=== PATIENT | female | born 1965 | race American Indian/Alaskan Native ===

== ENCOUNTER 2016-11-03 18:35 | Emergency (ER) | payer BC, OTHER ==
[2016-11-03] MEDS ORDERED: Sodium Chloride 0.9% 10 ML Syringe FLUSH PRN (18:57)
[2016-11-03] MEDS ORDERED: Sodium Chloride 0.9% 2.5 ML Syringe FLUSH PRN (18:57)
--- NOTE | 2016-11-03 19:01 | EDM.PDOC ---
ED HPI GENERAL MEDICAL PROBLEM - General Chief Complaint: Abdominal Pain Stated Complaint: PT HAS STOMACH PAINS Time Seen by Provider: 11/03/16 18:59 Source of Information: Reports: Patient History Limitations: Reports: No Limitations - History of Present Illness INITIAL COMMENTS - FREE TEXT/NARRATIVE: HISTORY AND PHYSICAL: [] 51-year-old female presenting with right lower quadrant pain 3 days History of Present Illness: []Denies any nausea or vomiting, has been having stools Has history of hysterectomy Review of Systems: As per history of present illness and below otherwise all systems reviewed and negative. Past medical history: As per history of present illness and as reviewed below otherwise noncontributory. Surgical history: As per history of present illness and as reviewed below otherwise noncontributory. Social history: No reported history of drug or alcohol abuse. Family history: As per history of present illness and as reviewed below otherwise noncontributory. Physical exam: Alert and oriented female who doesn't look distressed HEENT: Atraumatic, normocehpalic, pupils reactive, negative for conjunctival pallor or scleral icterus, mucous membranes moist, throat clear, neck supple, nontender, trachea midline. Lungs: Clear to auscultation, breath sounds equal bilaterally, chest non tender. Heart: S1S2, regular, negative for clicks, rubs, or JVD. Abdomen: Soft, nondistended, tender no rebound present no guarding. Negative for masses or hepatossplenmegaly. Negative for costovertebral tenderness. Pelvis: Stable nontender. Genitourinary: Deferred. Rectal: Deferred Extremities: Atraumatic, negative for cords or calf pain. Neurovascular unremarkable. Neuro: Awake, alert, oriented. Cranial nerves II through XII unremarkable. Cerebellum unremarkable. Motor and sensory unremarkable throughout. Exam nonfocal. Offer pain medication was declined by the patient Discussed results of the testing with patient no gross abnormality there is some diverticulosis Patient has agreed to pain medication Diagnostics: [CBC, CMP, amylase, lipase, abdominal -pelvic CT with contrast] Therapeutics: [NS] Toradol IV Impression: [Abdominal pain] Plan: [] Home Follow up with your primary care provider Keflex Definitive disposition and diagnosis as appropriate pending reevaluation and review of above. Onset: Sudden Duration: Day(s): (3) Location: Reports: Abdomen Right Lower Abdomen Pain Score (Numeric/FACES): 7 - Related Data Allergies Allergy/AdvReac Type Severity Reaction Status Date / Time fluoxetine HCl [From Prozac] Allergy Hives Verified 08/13/15 22:49 latex Allergy Itching Verified 08/13/15 22:49 strawberry Allergy Rash Verified 08/13/15 22:49 temazepam [From Restoril] Allergy Hives Verified 08/13/15 22:49 halibut Allergy Other Uncoded 11/03/16 19:01 Lobster/Crab Allergy Hives Uncoded 08/13/15 22:49 Home Meds: Home Meds Lisinopril 10 mg PO BRK 11/06/13 [History] sitaGLIPtin Phos/Metformin HCl [Janumet 50-1,000 MG] 1 tab PO BID 11/06/13 [ History] Albuterol Sulfate [Proair Hfa] 2 puff INH ASDIRECTED PRN 04/21/15 [History] Multivitamin [Multivitamins] 1 tab PO DAILY 05/13/15 [History] Aspirin 81 mg PO DAILY 11/03/16 [History] Omeprazole 20 mg PO ONETIME 11/03/16 [History] Past Medical History HEENT History: Reports: Cataract Other HEENT History: wears glasses Cardiovascular History: Reports: None Respiratory History: Reports: Asthma Other Respiratory History: 20 yr history of smoking cigarettes, current 1 pack/ day Gastrointestinal History: Reports: GERD Other Gastrointestinal History: Years of Heartburn GERD "used to take Prilosec, but stopped taking it" Musculoskeletal History: Reports: Fracture Other Musculoskeletal History: hx: fracturing ANkle Neurological History: Reports: None Psychiatric History: Reports: None Other Psychiatric History: "Past, history depression" Endocrine/Metabolic History: Reports: Diabetes, Type II, Obesity/BMI 30+ Hematologic History: Reports: None Immunologic History: Reports: None Oncologic (Cancer) History: Reports: None Dermatologic History: Reports: None - Infectious Disease History Infectious Disease History: Reports: Chicken Pox - Past Surgical History Other GI Surgeries/Procedures: "Reports 3 Hernia repairs with Mesh", Open Cholecystectomy Other Female Surgeries/Procedures: x 2, "total Hysterectomy" Social & Family History - Family History HEENT: Reports: None Cardiac: Reports: None - Tobacco Use Smoking Status *Q: Current Every Day Smoker Years of Tobacco use: 20 Packs/Tins Daily: 1 - Alcohol Use Days Per Week of Alcohol Use: 0 Number of Drinks Per Day: 0 Total Drinks Per Week: 0 - Recreational Drug Use Recreational Drug Use: No Drug Use in Last 12 Months: No ED ROS GENERAL - Review of Systems Review Of Systems: ROS reveals no pertinent complaints other than HPI. ED EXAM, GI/ABD - Physical Exam Exam: See Below (see dictation) Course - Vital Signs Last Recorded V/S: Last Vital Signs Temp 36.1 C 11/03/16 19:07 Pulse 71 11/03/16 21:00 Resp 16 11/03/16 21:00 BP 124/69 11/03/16 21:00 Pulse Ox 97 11/03/16 21:00 - Orders/Labs/Meds Orders: Active Orders 24 hr Category Date Time Status Abdomen Pelvis w Cont [CT] Stat Exams 11/03/16 19:46 Ordered Sodium Chloride 0.9% [Saline Flush] Med 11/03/16 18:57 Active 10 ml FLUSH ASDIRECTED PRN Sodium Chloride 0.9% [Saline Flush] Med 11/03/16 18:57 Active 2.5 ml FLUSH ASDIRECTED PRN Saline Lock Insert [OM.PC] Stat Oth 11/03/16 18:57 Ordered Medication Orders Sodium Chloride (Saline Flush) 10 ml FLUSH ASDIRECTED PRN PRN Reason: Keep Vein Open Last Admin: 11/03/16 19:11 Dose: 10 ml Sodium Chloride (Saline Flush) 2.5 ml FLUSH ASDIRECTED PRN PRN Reason: Keep Vein Open Last Admin: 11/03/16 19:10 Dose: 2.5 ml Labs: Laboratory Tests 11/03/16 11/03/16 11/03/16 Range/Units 19:05 19:05 19:15 WBC 12.73 H (4.0-11.0) K/uL RBC 5.12 (4.30-5.90) M/uL Hgb 15.1 (12.0-16.0) g/dL Hct 43.7 (36.0-46.0) % MCV 85.4 (80.0-98.0) fL MCH 29.5 (27.0-32.0) pg MCHC 34.6 (31.0-37.0) g/dL RDW Std Deviation 42.3 (28.0-62.0) fl RDW Coeff of Yao 14 (11.0-15.0) % Plt Count 212 (150-400) K/uL MPV 12.20 H (7.40-12.00) fL Neut % (Auto) 65.1 (48.0-80.0) % Lymph % (Auto) 27.3 (16.0-40.0) % [place] % (Auto) 3.8 (0.0-15.0) % Eos % (Auto) 3.5 (0.0-7.0) % Baso % (Auto) 0.3 (0.0-1.5) % Neut # (Auto) 8.3 H (1.4-5.7) K/uL Lymph # (Auto) 3.5 H (0.6-2.4) K/uL [place] # (Auto) 0.5 (0.0-0.8) K/uL Eos # (Auto) 0.4 (0.0-0.7) K/uL Baso # (Auto) 0.0 (0.0-0.1) K/uL Nucleated RBC % 0.0 /100WBC Nucleated RBCs # 0 K/uL Sodium 140 (136-146) mmol/L Potassium 4.1 (3.5-5.1) mmol/L Chloride 109 (98-110) mmol/L Carbon Dioxide 20 L (21-31) mmol/L BUN 12 (6.0-23.0) mg/dL Creatinine 0.8 (0.6-1.5) mg/dL Est Cr Clr Drug Dosing 81.81 mL/min Estimated GFR (MDRD) > 60.0 ml/min Glucose 184 H (60-110) mg/dL Calcium 9.4 (8.8-10.8) mg/dL Total Bilirubin 0.4 (0.1-1.5) mg/dL AST 22 (5-40) IU/L ALT 22 (8-54) IU/L Alkaline Phosphatase 84 (40-150) Total Protein 7.7 (6.0-8.0) g/dL Albumin 4.2 (3.5-5.0) g/dL Globulin 3.5 (2.0-3.5) g/dL Albumin/Globulin Ratio 1.2 L (1.3-2.8) Amylase 65 (10-90) U/L Lipase 51 (7-80) U/L Urine Color Urine Appearance Urine pH (5.0-8.0) Ur Specific [place] (1.001-1.035) Urine Protein (NEGATIVE) mg/dL Urine Glucose (UA) (NEGATIVE) mg/dL Urine Ketones (NEGATIVE) mg/dL Urine Occult Blood (NEGATIVE) Urine Nitrite (NEGATIVE) Urine Bilirubin (NEGATIVE) Urine Urobilinogen (<2.0) EU/dL Ur Leukocyte Esterase (NEGATIVE) Urine RBC (0-2/HPF) Urine WBC (0-5/HPF) Ur Epithelial Cells (NONE-FEW) Urine Bacteria (NEGATIVE) Urine Mucus (NONE-MOD) Urine HCG, Qual NEGATIVE (NEGATIVE) 11/03/16 Range/Units 19:15 WBC (4.0-11.0) K/uL RBC (4.30-5.90) M/uL Hgb (12.0-16.0) g/dL Hct (36.0-46.0) % MCV (80.0-98.0) fL MCH (27.0-32.0) pg MCHC (31.0-37.0) g/dL RDW Std Deviation (28.0-62.0) fl RDW Coeff of [place]ao (11.0-15.0) % Plt Count (150-400) K/uL MPV (7.40-12.00) fL Neut % (Auto) (48.0-80.0) % Lymph % (Auto) (16.0-40.0) % [place] % (Auto) (0.0-15.0) % Eos % (Auto) (0.0-7.0) % Baso % (Auto) (0.0-1.5) % Neut # (Auto) (1.4-5.7) K/uL Lymph # (Auto) (0.6-2.4) K/uL [place] # (Auto) (0.0-0.8) K/uL Eos # (Auto) (0.0-0.7) K/uL Baso # (Auto) (0.0-0.1) K/uL Nucleated RBC % /100WBC Nucleated RBCs # K/uL Sodium (136-146) mmol/L Potassium (3.5-5.1) mmol/L Chloride (98-110) mmol/L Carbon Dioxide (21-31) mmol/L BUN (6.0-23.0) mg/dL Creatinine (0.6-1.5) mg/dL Est Cr Clr Drug Dosing mL/min Estimated GFR (MDRD) ml/min Glucose (60-110) mg/dL Calcium (8.8-10.8) mg/dL Total Bilirubin (0.1-1.5) mg/dL AST (5-40) IU/L ALT (8-54) IU/L Alkaline Phosphatase (40-150) Total Protein (6.0-8.0) g/dL Albumin (3.5-5.0) g/dL Globulin (2.0-3.5) g/dL Albumin/Globulin Ratio (1.3-2.8) Amylase (10-90) U/L Lipase (7-80) U/L Urine Color YELLOW Urine Appearance CLEAR Urine pH 6.0 (5.0-8.0) Ur Specific [place] 1.025 (1.001-1.035) Urine Protein NEGATIVE (NEGATIVE) mg/dL Urine Glucose (UA) NEGATIVE (NEGATIVE) mg/dL Urine Ketones NEGATIVE (NEGATIVE) mg/dL Urine Occult Blood TRACE-LYSED (NEGATIVE) Urine Nitrite NEGATIVE (NEGATIVE) Urine Bilirubin NEGATIVE (NEGATIVE) Urine Urobilinogen 0.2 (<2.0) EU/dL Ur Leukocyte Esterase NEGATIVE (NEGATIVE) Urine RBC 0-1 (0-2/HPF) Urine WBC 0-2 (0-5/HPF) Ur Epithelial Cells OCCASIONAL (NONE-FEW) Urine Bacteria FEW (NEGATIVE) Urine Mucus LIGHT (NONE-MOD) Urine HCG, Qual (NEGATIVE) Meds: Medications Generic Name Dose Route Start Last Admin Trade Name Freq PRN Reason Stop Dose Admin Sodium Chloride 10 ml 11/03/16 18:57 11/03/16 19:11 Saline Flush FLUSH 10 ml ASDIRECTED PRN Administration Keep Vein Open Sodium Chloride 2.5 ml 11/03/16 18:57 11/03/16 19:10 Saline Flush FLUSH 2.5 ml ASDIRECTED PRN Administration Keep Vein Open Discontinued Medications Generic Name Dose Route Start Last Admin Trade Name Freq PRN Reason Stop Dose Admin Sodium Chloride 1,000 mls @ 999 mls/hr 11/03/16 19:11 11/03/16 19:16 Normal Saline IV 11/03/16 20:11 999 mls/hr STAT ONE Administration Departure - Departure Time of Disposition: 21:24 Disposition: Home, Self-Care 01 Condition: Good Clinical Impression: Abdominal pain Qualifiers: Abdominal location: right lower quadrant Qualified Code(s): R10.31 - Right lower quadrant pain Diverticulosis Qualifiers: Diverticulosis site: unspecified location Diverticulosis bleeding: diverticulosis without bleeding Qualified Code(s): K57.90 - Diverticulosis of intestine, part unspecified, without perforation or abscess without bleeding - Discharge Information Forms: ED Department Discharge Additional Instructions: The following information is given to patients seen in the emergency department who are being discharged to home. This information is to outline your options for follow-up care. We provide all patients seen in our emergency department with a follow-up referral. The need for follow-up, as well as the timing and circumstances, are variable depending upon the specifics of your emergency department visit. If you don't have a primary care physician on staff, we will provide you with a referral. We always advise you to contact your personal physician following an emergency department visit to inform them of the circumstance of the visit and for follow-up with them and/or the need for any referrals to a consulting specialist. The emergency department will also refer you to a specialist when appropriate. This referral assures that you have the opportunity for followup care with a specialist. All of these measure are taken in an effort to provide you with optimal care, which includes your followup. Under all circumstances we always encourage you to contact your private physician who remains a resource for coordinating your care. When calling for followup care, please make the office aware that this follow-up is from your recent emergency room visit. If for any reason you are refused follow-up, please contact the [facility] emergency department at and asked to speak to the emergency department charge nurse. SHe had a abdominal CT scan while you were here showing some diverticulosis count for your abdominal pain Toradol was given IV Keflex 500 4 times a day 7 days - My Orders Last 24 Hours: My Active Orders 11/03/16 18:57 Sodium Chloride 0.9% [Saline Flush] 10 ml FLUSH ASDIRECTED PRN Sodium Chloride 0.9% [Saline Flush] 2.5 ml FLUSH ASDIRECTED PRN Saline Lock Insert [OM.PC] Stat 11/03/16 19:46 Abdomen Pelvis w Cont [CT] Stat - Assessment/Plan Last 24 Hours: My Active Orders 11/03/16 18:57 Sodium Chloride 0.9% [Saline Flush] 10 ml FLUSH ASDIRECTED PRN Sodium Chloride 0.9% [Saline Flush] 2.5 ml FLUSH ASDIRECTED PRN Saline Lock Insert [OM.PC] Stat 11/03/16 19:46 Abdomen Pelvis w Cont [CT] Stat
[2016-11-03] MEDS ORDERED: Sodium Chloride 0.9% 1,000 ML IV ONE (19:11)
[2016-11-03 19:34] LABS: CHLORIDE,CL 109 mmol/L (98-110); SODIUM,NA 140 mmol/L (136-146)
[2016-11-03] MEDS ORDERED: Iopamidol 755 Mg/ML 100 ML Bottle IVPUSH STA (19:55)
[2016-11-03] MEDS ORDERED: Ketorolac 30 MG/ML SDV IVPUSH ONE (21:24)
[2016-11-03 21:40] VITALS: BP 120/67
--- NOTE | 2016-11-06 13:51 | CT ---
EXAM DATE: 11/03/16 PATIENT'S AGE: 51 Patient: LOGAN MENCHACA Facility: [place], [place] Site . Site : [id number] Study: CT Abdomen/Pelvis [id number]/30/2017 8:26:12 PM Ordering Physician: Doctor Schofield Final Report: INDICATION: Right lower quadrant pain TECHNIQUE: CT abdomen and pelvis acquired with IV contrast. COMPARISON: 03/31/2013. FINDINGS: Lower chest: Unremarkable. Liver: Hepatomegaly measuring 22 centimeters craniocaudally. Mild hepatic steatosis. Nodularity of the inferior hepatic surface. Spleen: Mild splenomegaly measuring 13.7 centimeters craniocaudally. Pancreas: Unremarkable. Gallbladder and bile ducts: Cholecystectomy. Adrenal glands: Unremarkable. Kidneys: No hydronephrosis. Subcentimeter renal low-density lesions, statistically representing cysts. GI tract: No bowel obstruction. Fluid filled lower abdominal and pelvic small bowel segments are nonspecific. A normal-caliber appendix. Colonic diverticulosis without diverticulitis. Vascular structures: Unremarkable. Lymph nodes: Multiple mildly prominent, borderline and shotty subcentimeter upper abdominal, retroperitoneal and mesenteric lymph nodes again seen. Miscellaneous: No free fluid or free air. Interval repair of the previously seen ventral hernia with a mesh along the anterior abdominal wall. Pelvic Organs: Hysterectomy. No gross bladder abnormality seen. Bones: Bilateral L5 spondylolysis with grade 1 anterolisthesis of L5 on S1. IMPRESSION: No evidence of appendicitis, diverticulitis or bowel obstruction. Fluid-filled small bowel segments are nonspecific. Correlate for enteritis. Splenomegaly. Mild hepatic steatosis. Nodularity of the inferior hepatic surface. Correlate for chronic hepatic disease/ cirrhosis. Multiple shotty abdominal lymph nodes again seen. Interval repair of the previously seen ventral hernia. Dictated by Carlos Bolanos MD @ 11/03/2016 9:12:03 PM Dictated by: Carlos Bolanos MD @ 11/03/2016 21:12:09 (Electronic Signature) Report Signed by Proxy. [facility] SYSTEMJavi
== END 2016-11-03 21:37 | disposition home or self-care (01) ==
LOC: MW.ED 18:35
DX: K57.90 Diverticulosis of intestine, part unspecified, without perforation or abscess without bleeding (principal); F17.210 Nicotine dependence, cigarettes, uncomplicated; J45.909 Unspecified asthma, uncomplicated; K21.9 Gastro-esophageal reflux disease without esophagitis; E11.9 Type 2 diabetes mellitus without complications; F32.9 Major depressive disorder, single episode, unspecified; Z79.82 Long term (current) use of aspirin; Z79.899 Other long term (current) drug therapy; Z88.8 Allergy status to other drugs, medicaments and biological substances; Z91.030 Bee allergy status; Z91.040 Latex allergy status
CPT/HCPCS: 74177; 80053; 81001; 81025; 82150; 83690; 85025; 96361; 96374; 99284; J1885; J7040; Q9967

== ENCOUNTER 2018-08-13 05:29 | Emergency (ER) | payer BC, OTHER ==
[2018-08-13] MEDS ORDERED: Albuterol/Ipratropium 3.0-0.5 MG/3 ML Neb Soln ONE (05:30)
[2018-08-13] MEDS ORDERED: Albuterol/Ipratropium 3.0-0.5 MG/3 ML Neb Soln NEB ONE ×2 (05:32→06:14)
[2018-08-13] MEDS ORDERED: Sodium Chloride 0.9% 1,000 ML IV ONE (05:40)
[2018-08-13] MEDS ORDERED: Sodium Chloride 0.9% 10 ML Syringe FLUSH PRN (05:40)
[2018-08-13] MEDS ORDERED: methylPREDNISolone Sodium Succinate 125 MG/2 ML SDV IVPUSH ONE (05:40)
[2018-08-13] MEDS ORDERED: Sodium Chloride 0.9% 2.5 ML Syringe FLUSH PRN (05:40)
--- NOTE | 2018-08-13 05:45 | EDM.PDOC ---
ED HPI GENERAL MEDICAL PROBLEM - General Chief Complaint: Respiratory Problem Stated Complaint: SHORTNESS OF BREATH Time Seen by Provider: 08/13/18 05:32 - History of Present Illness INITIAL COMMENTS - FREE TEXT/NARRATIVE: HISTORY AND PHYSICAL: History of present illness: The patient is a 52-year-old female with a history of asthma who only uses inhalers as needed and has not been on steroids recently but continues to smoke cigarettes and follows with Dr. Lew at [facility] and presents with 2 days of cough congestion and upper respiratory symptoms associated with wheezing which seemed to get worse over the last 2 hours. She says she has had fevers at home and she has been taking [id number] Tylenol and ibuprofen. She has not seen her provider for these symptoms. Patient has had no nausea vomiting or abdominal pain. She denies any chest pain except with the cough and the cough is occasionally productive of some phlegm. Review of systems: As per history of present illness and below otherwise all systems reviewed and negative. Past medical history: As per history of present illness and as reviewed below otherwise noncontributory. Surgical history: As per history of present illness and as reviewed below otherwise noncontributory. Social history: No reported history of drug or alcohol abuse. Family history: As per history of present illness and as reviewed below otherwise noncontributory. Physical exam: General: Well-developed well-nourished mildly overweight female who is nontoxic and can speak without breathlessness. She does have a dry hacking cough on my evaluation. Vital signs are noted by me including the O2 sat on room air at arrival of 93% HEENT: Atraumatic, normocephalic, pupils reactive, negative for conjunctival pallor or scleral icterus, mucous membranes moist, throat clear, neck supple, nontender, trachea midline. Lungs: Scattered expiratory wheezing more on the right and more diminished breath sounds at the left base but no worker breathing or stridor chest nontender. Heart: S1S2, regular rate and rhythm no overt murmurs Abdomen: Soft, nondistended, nontender. NABS Pelvis: Stable nontender. Genitourinary: Deferred. Rectal: Deferred. Extremities: Atraumatic, negative for cords or calf pain. Neurovascular unremarkable. No pedal edema Neuro: Awake, alert, oriented. Cranial nerves II through XII unremarkable. Cerebellum unremarkable. Motor and sensory unremarkable throughout. Exam nonfocal. Diagnostics: CBC lactic acid influenza chest x-ray Therapeutics: IV O2 pulse ox IV fluids duo neb Solu-Medrol spacer After the first DuoNeb patient is moving air much better and is having only scattered wheezing. Her O2 sat on room air is 92-93% but she is not working to breathe. She is aware of testing results including the positive influenza test. I will give her Tamiflu prednisone and Phenergan with codeine for home and she says she has her albuterol inhaler so we will give her a spacer Impression: Acute asthma exacerbation, influenza A Definitive disposition and diagnosis as appropriate pending reevaluation and review of above. 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 Treatments - Related Data Allergies Allergy/AdvReac Type Severity Reaction Status Date / Time fluoxetine HCl [From Prozac] Allergy Hives Verified 08/13/18 05:38 latex Allergy Itching Verified 08/13/18 05:38 strawberry Allergy Rash Verified 08/13/18 05:38 temazepam [From Restoril] Allergy Hives Verified 08/13/18 05:38 halibut Allergy Other Uncoded 08/13/18 05:38 Lobster/Crab Allergy Hives Uncoded 08/13/18 05:38 Home Meds: Home Meds Lisinopril 10 mg PO BRK 11/06/13 [History] sitaGLIPtin Phos/Metformin HCl [Janumet 50-1,000 MG] 1 tab PO BID 11/06/13 [ History] Albuterol Sulfate [Proair Hfa] 2 puff INH ASDIRECTED PRN 04/21/15 [History] Multivitamin [Multivitamins] 1 tab PO DAILY 05/13/15 [History] Aspirin 81 mg PO DAILY 11/03/16 [History] Omeprazole 20 mg PO ONETIME 11/03/16 [History] Orphenadrine [Norflex] 100 mg PO BID PRN #12 tab 04/27/18 [Rx] traMADol [Ultram] 50 mg PO Q6H PRN #12 tab 04/27/18 [Rx] Past Medical History HEENT History: Reports: Cataract Other HEENT History: wears glasses Cardiovascular History: Reports: None Respiratory History: Reports: Asthma Other Respiratory History: 20 yr history of smoking cigarettes, current 1 pack/ day Gastrointestinal History: Reports: GERD Other Gastrointestinal History: Years of Heartburn GERD "used to take Prilosec, but stopped taking it" Genitourinary History: Reports: None 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: Musculoskeletal History: Reports: Fracture Other Musculoskeletal History: hx: fracturing ANkle Neurological History: Reports: None Psychiatric History: Reports: None Other Psychiatric History: "Past, history depression" Endocrine/Metabolic History: Reports: Diabetes, Type II, Obesity/BMI 30+ Hematologic History: Reports: None Immunologic History: Reports: None Oncologic (Cancer) History: Reports: None Dermatologic History: Reports: None - Infectious Disease History Infectious Disease History: Reports: Measles - Past Surgical History Head Surgeries/Procedures: Reports: None Other GI Surgeries/Procedures: "Reports 3 Hernia repairs with Mesh", Open Cholecystectomy Other Female Surgeries/Procedures: x 2, "total Hysterectomy" Social & Family History - Family History Family Medical History: Noncontributory HEENT: Reports: None Cardiac: Reports: None - Tobacco Use Smoking Status *Q: Current Every Day Smoker Years of Tobacco use: 32 Packs/Tins Daily: 1 - Caffeine Use Caffeine Use: Reports: Soda - Recreational Drug Use Recreational Drug Use: No ED ROS GENERAL - Review of Systems Review Of Systems: ROS reveals no pertinent complaints other than HPI. ED EXAM, GENERAL - Physical Exam Exam: See Below (See dictation) Course - Vital Signs Last Recorded V/S: Last Vital Signs Temp 36.7 C 08/13/18 06:02 Pulse 92 08/13/18 06:02 Resp 18 08/13/18 06:02 BP 118/65 08/13/18 06:02 Pulse Ox 94 L 08/13/18 06:02 - Orders/Labs/Meds Orders: Active Orders 24 hr Category Date Time Status Communication Order [RC] STAT Care 08/13/18 05:55 Active Oxygen Therapy, ED [RC] ASDIRECTED Care 08/13/18 05:40 Active Pulse Oximetry [RC] ASDIRECTED Care 08/13/18 05:40 Active RT Aerosol Therapy [RC] ASDIRECTED Care 08/13/18 05:43 Active RT Aerosol Therapy [RC] ASDIRECTED Care 08/13/18 06:14 Ordered Sodium Chloride 0.9% [Normal Saline] 1,000 ml Med 08/13/18 05:40 Active IV STAT Sodium Chloride 0.9% [Saline Flush] Med 08/13/18 05:40 Active 10 ml FLUSH ASDIRECTED PRN Sodium Chloride 0.9% [Saline Flush] Med 08/13/18 05:40 Active 2.5 ml FLUSH ASDIRECTED PRN Saline Lock Insert [OM.PC] Stat Oth 08/13/18 05:40 Ordered Medication Orders Sodium Chloride (Normal Saline) 1,000 mls @ 999 mls/hr IV STAT ONE Stop: 08/13/18 06:40 Last Admin: 08/13/18 05:59 Dose: 999 mls/hr Sodium Chloride (Saline Flush) 10 ml FLUSH ASDIRECTED PRN PRN Reason: Keep Vein Open Sodium Chloride (Saline Flush) 2.5 ml FLUSH ASDIRECTED PRN PRN Reason: Keep Vein Open Labs: Laboratory Tests 08/13/18 08/13/18 Range/Units 05:55 05:55 WBC 10.78 (4.0-11.0) K/uL RBC 4.79 (4.30-5.90) M/uL Hgb 14.0 (12.0-16.0) g/dL Hct 42.0 (36.0-46.0) % MCV 87.7 (80.0-98.0) fL MCH 29.2 (27.0-32.0) pg MCHC 33.3 (31.0-37.0) g/dL RDW Std Deviation 44.2 (28.0-62.0) fl RDW Coeff of Yao 14 (11.0-15.0) % Plt Count 112 L (150-400) K/uL MPV 11.60 (7.40-12.00) fL Neut % (Auto) 81.8 H (48.0-80.0) % Lymph % (Auto) 9.9 L (16.0-40.0) % Eaton % (Auto) 6.1 (0.0-15.0) % Eos % (Auto) 1.9 (0.0-7.0) % Baso % (Auto) 0.3 (0.0-1.5) % Neut # (Auto) 8.8 H (1.4-5.7) K/uL Lymph # (Auto) 1.1 (0.6-2.4) K/uL Eaton # (Auto) 0.7 (0.0-0.8) K/uL Eos # (Auto) 0.2 (0.0-0.7) K/uL Baso # (Auto) 0.0 (0.0-0.1) K/uL Nucleated RBC % 0.0 /100WBC Nucleated RBCs # 0 K/uL Lactate 2.2 H (0.20-2.00) mmol/L Meds: Medications Generic Name Dose Route Start Last Admin Trade Name Freq PRN Reason Stop Dose Admin Sodium Chloride 1,000 mls @ 999 mls/hr 08/13/18 05:40 08/13/18 05:59 Normal Saline IV 08/13/18 06:40 999 mls/hr STAT ONE Administration Sodium Chloride 10 ml 08/13/18 05:40 Saline Flush FLUSH ASDIRECTED PRN Keep Vein Open Sodium Chloride 2.5 ml 08/13/18 05:40 Saline Flush FLUSH ASDIRECTED PRN Keep Vein Open Discontinued Medications Generic Name Dose Route Start Last Admin Trade Name Freq PRN Reason Stop Dose Admin Albuterol/Ipratropium Confirm 08/13/18 05:30 08/13/18 06:03 Duoneb 3.0-0.5 Mg/3 Ml Administered 08/13/18 05:31 Not Given Dose 3 ml .ROUTE .STK-MED ONE Albuterol/Ipratropium 3 ml 08/13/18 05:32 08/13/18 05:32 Duoneb 3.0-0.5 Mg/3 Ml NEB 08/13/18 05:33 3 ml ONETIME ONE Administration Albuterol/Ipratropium 3 ml 08/13/18 06:14 Duoneb 3.0-0.5 Mg/3 Ml NEB 08/13/18 06:15 ONETIME ONE Methylprednisolone Sodium Succinate 125 mg 08/13/18 05:40 08/13/18 05:56 Solu-Medrol IVPUSH 08/13/18 05:41 125 mg ONETIME ONE Administration Departure - Departure Time of Disposition: 06:30 Disposition: Home, Self-Care 01 Condition: Good Clinical Impression: Influenza A Acute asthma exacerbation Qualifiers: Asthma severity: mild Asthma persistence: unspecified Qualified Code(s): J45.901 - Unspecified asthma with (acute) exacerbation - Discharge Information Forms: ED Department Discharge Additional Instructions: The following information is given to patients seen in the emergency department who are being discharged to home. This information is to outline your options for follow-up care. We provide all patients seen in our emergency department with a follow-up referral. The need for follow-up, as well as the timing and circumstances, are variable depending upon the specifics of your emergency department visit. If you don't have a primary care physician on staff, we will provide you with a referral. We always advise you to contact your personal physician following an emergency department visit to inform them of the circumstance of the visit and for follow-up with them and/or the need for any referrals to a consulting specialist. The emergency department will also refer you to a specialist when appropriate. This referral assures that you have the opportunity for followup care with a specialist. All of these measure are taken in an effort to provide you with optimal care, which includes your followup. Under all circumstances we always encourage you to contact your private physician who remains a resource for coordinating your care. When calling for followup care, please make the office aware that this follow-up is from your recent emergency room visit. If for any reason you are refused follow-up, please contact the [facility] emergency department at and ask to speak to the emergency department charge nurse. [address] [place] [address] [facility] Primary care- Internal Medicine and Family [address] [id number] Push hydration and rest and try to reduce and/or quit tobacco use. Please use your inhaler with a spacer you have been given every 6 hours for the next 2 days and then every 6 hours as needed. Please start the prednisone you have been given today tomorrow morning and use cough medicine as needed for sleep time. Start the Tamiflu this morning to help reduced the duration of your influenza symptoms. Please call Dr. Lew at [facility] or one of our providers for follow-up care and reevaluation. Return to ER as needed and as discussed - My Orders Last 24 Hours: My Active Orders 08/13/18 05:40 Oxygen Therapy, ED [RC] ASDIRECTED Pulse Oximetry [RC] ASDIRECTED Sodium Chloride 0.9% [Normal Saline] 1,000 ml IV STAT Sodium Chloride 0.9% [Saline Flush] 10 ml FLUSH ASDIRECTED PRN Sodium Chloride 0.9% [Saline Flush] 2.5 ml FLUSH ASDIRECTED PRN Saline Lock Insert [OM.PC] Stat 08/13/18 05:43 RT Aerosol Therapy [RC] ASDIRECTED 08/13/18 05:55 Communication Order [RC] STAT 08/13/18 06:14 RT Aerosol Therapy [RC] ASDIRECTED - Assessment/Plan Last 24 Hours: My Active Orders 08/13/18 05:40 Oxygen Therapy, ED [RC] ASDIRECTED Pulse Oximetry [RC] ASDIRECTED Sodium Chloride 0.9% [Normal Saline] 1,000 ml IV STAT Sodium Chloride 0.9% [Saline Flush] 10 ml FLUSH ASDIRECTED PRN Sodium Chloride 0.9% [Saline Flush] 2.5 ml FLUSH ASDIRECTED PRN Saline Lock Insert [OM.PC] Stat 08/13/18 05:43 RT Aerosol Therapy [RC] ASDIRECTED 08/13/18 05:55 Communication Order [RC] STAT 08/13/18 06:14 RT Aerosol Therapy [RC] ASDIRECTED
--- NOTE | 2018-08-13 06:06 | CR ---
INDICATION: Difficulty breathing. COMPARISON: Chest radiograph August 22, 2014. TECHNIQUE: Portable AP chest. FINDINGS: Normal size cardiac silhouette. Clear lung avalos with no evidence of acute pneumonic infiltrates or CHF. No pneumothorax or pleural effusion. IMPRESSION: Negative portable AP chest. Dictated by Poppy Matos MD @ Aug 13 2018 6:04AM Signed by Dr. Poppy Matos @ Aug 13 2018 6:05AM
[2018-08-13] MEDS ORDERED: Acetaminophen 500 MG Tab PO ONE (06:49)
[2018-08-13 06:54] VITALS: BP 135/111
== END 2018-08-13 07:25 | disposition home or self-care (01) ==
LOC: MW.ED 05:29
DX: J10.1 Influenza due to other identified influenza virus with other respiratory manifestations (principal); J45.901 Unspecified asthma with (acute) exacerbation; K21.9 Gastro-esophageal reflux disease without esophagitis; F32.9 Major depressive disorder, single episode, unspecified; E11.9 Type 2 diabetes mellitus without complications; F17.210 Nicotine dependence, cigarettes, uncomplicated; Z88.8 Allergy status to other drugs, medicaments and biological substances; Z91.040 Latex allergy status; Z91.018 Allergy to other foods; Z79.899 Other long term (current) drug therapy
CPT/HCPCS: 71045; 83605; 85025; 87804; 94640; 96361; 96374; 99285; A9270; J2930; J7040; 99283; J7620-GY